=== PATIENT | male | born 1975 | race American Indian/Alaskan Native ===

== ENCOUNTER 2021-04-25 07:24 | Inpatient (IN) | payer MEDICAID ==
[2021-04-24 15:59] LABS: BASOPHILS # (AUTO) 0.1 X10'3 (0-0.2); BASOPHILS % (AUTO) 0.3 % (0-1); EOSINOPHILS % (AUTO) 0.3 % (0-6); LYMPHOCYTES # (AUTO) 1.6 X10'3 (1.1-4.8); LYMPHOCYTES % (AUTO) 11.1 % (21-51); MEAN CORPUSCULAR HEMOGLOBIN 35.8 PG (27.0-31.0); MEAN CORPUSCULAR HGB CONC 34.3 g/dL (33.0-36.5); MEAN CORPUSCULAR VOLUME 104.2 FL (78-98); MEAN PLATELET VOLUME 9.3 FL (7.4-10.4); MONOCYTES # (AUTO) 1.5 X10'3 (0-0.9); MONOCYTES % (AUTO) 10.4 % (2-12); NEUTROPHILS # (AUTO) 11.3 X10'3 (1.8-7.7); NEUTROPHILS % (AUTO) 77.9 % (42-75); PRE OP HEMATOCRIT 48.4 % (42.0-52.0); PRE OP HEMOGLOBIN 16.6 g/dL (14.0-17.9); PRE OP PLATELET COUNT 266 X10'3 (140-440); RED BLOOD COUNT 4.64 X10'6 (4.70-6.10); RED CELL DISTRIBUTION WIDTH 13.7 % (11.5-14.5)
[2021-04-24 16:09] LABS: ALBUMIN 3.4 G/DL (3.4-5.0); ALBUMIN/GLOBULIN RATIO 0.9 (1.1-1.5); ALKALINE PHOSPHATASE 76 IU/L (46-116); BLOOD UREA NITROGEN 10 MG/DL (7-18); BUN/CREATININE RATIO 10.1 (5.4-32.0); CALCIUM 9.1 MG/DL (8.5-10.1); CHLORIDE 106 MMOL/L (99-107); CREATININE 0.99 MG/DL (0.60-1.10); PRE OP ALT 38 U/L (30-65); PRE OP ANION GAP 11 (8-16); PRE OP AST 28 U/L (10-37); PRE OP BILIRUB, TOTAL 0.4 MG/DL (0.0-1.0); PRE OP GLUCOSE 102 MG/DL (70-104); PRE OP POTASSIUM 3.9 MMOL/L (3.4-5.1); PRE OP SODIUM 140 MMOL/L (135-145); TOTAL CARBON DIOXIDE 23.5 MMOL/L (24-32); TOTAL PROTEIN 7.3 G/DL (6.4-8.2); eGFR 81 ML/MIN
[2021-04-25] VITALS (9 sets, daily range): BP systolic 112–132; BP diastolic 80–93
[~2021-04-25] VITALS: Ht 165.1 cm; Wt 70.3 kg
[~2021-04-25 07:24] MED LIST: ARIP5TAB60; DIVA500T2 PO; FENT1PAT10; GABA-530 PO; LAMO100T2 PO; LEVITRA; LISI40TA13 PO; METH-603 PO; MULT-1179 PO; NORCO10T PO; SUMA100T16; TEST200V33; ZOF4T PO; ZOLM5SPR5; cefazolin/dext.iso 2gm/50ml IV ONE; famotidine 20mg tablet PO ONE; ringers solution, lacted 1,000 ML IV SCH
[2021-04-25] MEDS ORDERED: PARO-62 PO (08:22)
[2021-04-25] MEDS ORDERED: BUPIVAcaine/PF 2.5 mg/ml (0.25%) 30ml vial ONE (09:17)
[2021-04-25] MEDS ORDERED: LIDOcaine 1% 30ml preserv. free vial ONE (09:17)
[2021-04-25] MEDS ORDERED: hydrALAZINE 20mg/ml inj. IV PRN (10:00)
[2021-04-25] MEDS ORDERED: labetalol 20mg/4ml (5mg/ml) syringe IV PRN (10:00)
[2021-04-25] MEDS ORDERED: morphine 4 MG/ML inj SYRINge IV PRN (10:00)
[2021-04-25] MEDS ORDERED: ringers solution, lacted 1,000 ML IV SCH (10:00)
[2021-04-25] MEDS ORDERED: morphine 2 MG/ML inj. syringe IV PRN (10:00)
[2021-04-25] MEDS ORDERED: fentaNYL/PF 50MCG/1 ML 2ML syringe IV PRN ×2 (10:00)
[2021-04-25] MEDS ORDERED: ondansetron/PF 4mg/2ml inj IV PRN (10:00)
[2021-04-25] MEDS ORDERED: neostigmine methylsulfate 1 MG/ML 10ml vial ONE (10:01)
[2021-04-25] MEDS ORDERED: dexamethasone sod phosphate 10mg/ml inj ONE (10:01)
[2021-04-25] MEDS ORDERED: sevoflurane 250ml liquid IH ONE (10:01)
[2021-04-25] MEDS ORDERED: dexmedetomidin/NS 400mcg/100mL BOTTLE IV ONE (10:01)
[2021-04-25] MEDS ORDERED: fentaNYL /PF 50mcg/ml 5ml ampule ONE (10:05)
[2021-04-25] MEDS ORDERED: midazolam 1 mg/ML 2ml injection ONE (10:05)
[2021-04-25] MEDS ORDERED: propofol inj 20 ML IV ONE (10:11)
[2021-04-25] MEDS ORDERED: LIDOcaine 2% (20mg/ml) 5ml vial ONE (10:11)
[2021-04-25] MEDS ORDERED: rocuronium 10mg/ml inj IV ONE ×3 (10:11→11:24)
[2021-04-25] MEDS ORDERED: ondansetron/PF 4mg/2ml inj ONE (10:12)
[2021-04-25] MEDS ORDERED: glycopyrrolate 0.2mg/ml inj ONE (10:13)
[2021-04-25] MEDS ORDERED: ePHEDrine 50MG/ML INJ. ONE (10:47)
[2021-04-25] MEDS ORDERED: BUPIVAcaine/PF 2.5mg/ml (0.25%) 10ml vial ONE (12:42)
[2021-04-25] MEDS ORDERED: BUPIVACAINE liposomal/PF 13.3 MG/ML vial IM ONE (12:43)
--- NOTE | 2021-04-25 13:20 | NUR ---
Received from OR via , accompanied by Anesthesiologist DR IBRAHIM and report given by Anesthesiolgist. AWAKENS TO VOICE. VITALS STABLE. DRESSING DI. ANNALISA PAIN. NG TO SHANNAN. JACKELYN WITH SERO SANG IN BULB. ABD SOFT.
[2021-04-25] MEDS ORDERED: naloxone 0.4 mg/ml inj IV PRN (13:40)
[2021-04-25] MEDS ORDERED: CADD PCA waste documentation MC PRN (13:40)
[2021-04-25] MEDS ORDERED: HYDROmorph./NS 0.2 mg/ml CADD 100 ML IV SCH (13:40)
[2021-04-25] MEDS: HYDROmorph./NS 0.2 mg/ml CADD 100 ML IV SCH ×5 (14:14→23:00)
--- NOTE | 2021-04-25 14:30 | NUR ---
Report called to receiving nurse. Transferred via BED Belongings . Special Issues communicated to receiving nurse.AWAKE AND ORIENTED. VITALS STABLE. DRESSINGS DI. STASTES TOLERABLE PAIN LEVEL. TO SURGICAL RM 345B AT TIS TIME.
--- NOTE | 2021-04-25 15:52 | NUR ---
pt arrived on unit 1439. no acute changes from report given by PACU Jim WOOD. Dejan WILLIS, IVF/pump, chart, burgess arrived with pt. abd sx site island dressing dry/intact. NG connected to low intermittent suction. pts called to make aware of arrival to unit
[2021-04-25] MEDS: divalproex sodium 500mg tablet.DR PO SCH (19:20)
[2021-04-25] MEDS: potassium CL 20mEq in D5-1/2NS 1,000 ML IV SCH ×2 (19:20→21:40)
[2021-04-25] MEDS: heparin, porcine 5000 units/ml vial SQ SCH (20:53)
[2021-04-25] MEDS: LORazepam 2 mg/ml vial IV PRN (23:18)
[2021-04-26] VITALS: BP 113/71
[2021-04-26] MEDS: HYDROmorph./NS 0.2 mg/ml CADD 100 ML IV SCH ×12 (01:00→23:00)
[2021-04-26] MEDS: potassium CL 20mEq in D5-1/2NS 1,000 ML IV SCH ×3 (05:40→21:40)
[2021-04-26 06:42] LABS: ALBUMIN 2.6 G/DL (3.4-5.0); ANION GAP 8 (8-16); BLOOD UREA NITROGEN 8 MG/DL (7-18); CALCIUM 8.9 MG/DL (8.5-10.1); CHLORIDE 104 MMOL/L (99-107); GLUCOSE 131 MG/DL (70-104); POTASSIUM 4.2 MMOL/L (3.5-5.1); SODIUM 138 MMOL/L (135-145); TOTAL CARBON DIOXIDE 26.1 MMOL/L (24-32); eGFR > 90 ML/MIN
[2021-04-26 06:46] LABS: BASOPHILS % (AUTO) 0.1 % (0-1); EOSINOPHILS % (AUTO) 0 % (0-6); HEMATOCRIT 43.6 % (42.0-52.0); LYMPHOCYTES % (AUTO) 5.5 % (21-51); MEAN CORPUSCULAR HEMOGLOBIN 35.8 PG (27.0-31.0); MEAN CORPUSCULAR HGB CONC 34.4 g/dL (33.0-36.5); MEAN CORPUSCULAR VOLUME 103.9 FL (78-98); MEAN PLATELET VOLUME 9.5 FL (7.4-10.4); MONOCYTES # (AUTO) 2.1 X10'3 (0-0.9); MONOCYTES % (AUTO) 12.3 % (2-12); NEUTROPHILS # (AUTO) 14.3 X10'3 (1.8-7.7); NEUTROPHILS % (AUTO) 82.1 % (42-75); PLATELET COUNT 216 X10'3 (140-440); RED CELL DISTRIBUTION WIDTH 13.3 % (11.5-14.5); WHITE BLOOD COUNT 17.4 X10'3 (4.5-11.0)
[2021-04-26 08:00] VITALS: BP 126/92
[2021-04-26] MEDS: heparin, porcine 5000 units/ml vial SQ SCH ×2 (08:00→21:31)
[2021-04-26] MEDS ORDERED: fentaNYL 25MCG/hour patch.TD72 TD SCH (08:00)
[2021-04-26] MEDS: divalproex sodium 500mg tablet.DR PO SCH ×2 (08:30→15:31)
[2021-04-26] MEDS: pantoprazole 40MG/NS 100ML BAG 100 ML IV SCH (09:01)
[2021-04-26] MEDS: ondansetron/PF 4mg/2ml inj IV PRN (09:01)
[2021-04-26] MEDS: LORazepam 2 mg/ml vial IV PRN ×2 (09:06→15:50)
[2021-04-26 12:00] VITALS: BP 128/80
[2021-04-26] MEDS: PARoxetine 20mg tablet PO SCH (15:31)
[2021-04-26] MEDS: lamoTRIgine 100mg tablet PO SCH (15:31)
[2021-04-26] MEDS: aripiprazole 5mg tablet PO SCH (15:31)
[2021-04-26] MEDS: lisinopril 20mg tablet PO SCH (15:32)
--- NOTE | 2021-04-26 17:27 | NUR ---
Malnutrition consult: Pt reports wt loss with decreased appetite per malnutrition risk screen with RN. Most recent scaled wt hx in EMR is 78.2 kg taken 04/23/17 with standing scale, current standing scaled wt is 70.3 kg. This is non-significant wt loss of 10% in 4 years. Pt currently on ice sips and chips diet only s/p Joshua with Carrol-en-Y gastrojejunostomy revision POD #1. Pt likely to experience some changes in weight r/t gastric surgery. No documented edema in EMR. Pt currently lacks a minimum of two criteria for malnutrition. Will continue to follow. Addendum: 04/26/21 at [address] Amended: Links added.
[2021-04-26 20:00] VITALS: BP 144/87
[2021-04-27] VITALS: BP 139/95
[2021-04-27] MEDS: HYDROmorph./NS 0.2 mg/ml CADD 100 ML IV SCH ×11 (01:00→21:00)
[2021-04-27] MEDS: potassium CL 20mEq in D5-1/2NS 1,000 ML IV SCH ×3 (03:18→17:25)
[2021-04-27 06:25] LABS: BASOPHILS % (AUTO) 0.1 % (0-1); EOSINOPHILS % (AUTO) 0.1 % (0-6); HEMATOCRIT 42.4 % (42.0-52.0); HEMOGLOBIN 14.6 g/dl (14.0-17.9); LYMPHOCYTES # (AUTO) 1.1 X10'3 (1.1-4.8); LYMPHOCYTES % (AUTO) 6.3 % (21-51); MEAN CORPUSCULAR HEMOGLOBIN 35.6 PG (27.0-31.0); MEAN CORPUSCULAR HGB CONC 34.5 g/dL (33.0-36.5); MEAN CORPUSCULAR VOLUME 103.2 FL (78-98); MEAN PLATELET VOLUME 9.9 FL (7.4-10.4); MONOCYTES # (AUTO) 2.6 X10'3 (0-0.9); MONOCYTES % (AUTO) 14.2 % (2-12); NEUTROPHILS # (AUTO) 14.3 X10'3 (1.8-7.7); NEUTROPHILS % (AUTO) 79.3 % (42-75); PLATELET COUNT 202 X10'3 (140-440); RED BLOOD COUNT 4.11 X10'6 (4.70-6.10); RED CELL DISTRIBUTION WIDTH 13.4 % (11.5-14.5); WHITE BLOOD COUNT 18.1 X10'3 (4.5-11.0)
[2021-04-27 06:40] LABS: ALBUMIN 2.4 G/DL (3.4-5.0); ANION GAP 10 (8-16); BLOOD UREA NITROGEN 15 MG/DL (7-18); BUN/CREATININE RATIO 20.5 (5.4-32.0); CHLORIDE 100 MMOL/L (99-107); CREATININE 0.73 MG/DL (0.60-1.10); GLUCOSE 118 MG/DL (70-104); POTASSIUM 3.9 MMOL/L (3.5-5.1); SODIUM 135 MMOL/L (135-145); TOTAL CARBON DIOXIDE 25.3 MMOL/L (24-32); eGFR > 90 ML/MIN
[2021-04-27 08:00] VITALS: BP 113/76
[2021-04-27] MEDS ORDERED: SUMAtriptan 25 MG tablet PO ONE (09:45)
[2021-04-27] MEDS: lamoTRIgine 100mg tablet PO SCH (09:58)
[2021-04-27] MEDS: PARoxetine 20mg tablet PO SCH (09:58)
[2021-04-27] MEDS: divalproex sodium 500mg tablet.DR PO SCH ×2 (09:58→18:05)
[2021-04-27] MEDS: lisinopril 20mg tablet PO SCH (09:58)
[2021-04-27] MEDS: pantoprazole 40MG/NS 100ML BAG 100 ML IV SCH (09:59)
[2021-04-27] MEDS: heparin, porcine 5000 units/ml vial SQ SCH ×2 (09:59→20:21)
[2021-04-27 11:00] VITALS: BP 106/70
[2021-04-27] MEDS: aripiprazole 5mg tablet PO SCH (13:12)
--- NOTE | 2021-04-27 18:52 | NUR ---
Problems reprioritized. Patient report given, questions answered & plan of care reviewed with rubén montana rn.
--- NOTE | 2021-04-27 18:55 | NUR ---
Patient in room [facility]. I have received report from ROMÁN WOOD and had the opportunity to ask questions and assume patient care.
[2021-04-27 20:00] VITALS: BP 121/82
[2021-04-27] MEDS: gabapentin 100mg capsule PO SCH (20:21)
[2021-04-28] VITALS: BP 127/69
[2021-04-28] MEDS: HYDROmorph./NS 0.2 mg/ml CADD 100 ML IV SCH ×5 (01:00→09:00)
[2021-04-28] MEDS: potassium CL 20mEq in D5-1/2NS 1,000 ML IV SCH (03:10)
[2021-04-28 05:10] LABS: BASOPHILS % (AUTO) 0.1 % (0-1); EOSINOPHILS % (AUTO) 0.2 % (0-6); HEMATOCRIT 41.7 % (42.0-52.0); HEMOGLOBIN 14.4 g/dl (14.0-17.9); LYMPHOCYTES # (AUTO) 0.8 X10'3 (1.1-4.8); LYMPHOCYTES % (AUTO) 5.6 % (21-51); MEAN CORPUSCULAR HEMOGLOBIN 35.8 PG (27.0-31.0); MEAN CORPUSCULAR HGB CONC 34.5 g/dL (33.0-36.5); MEAN CORPUSCULAR VOLUME 103.6 FL (78-98); MEAN PLATELET VOLUME 9.8 FL (7.4-10.4); MONOCYTES # (AUTO) 1.9 X10'3 (0-0.9); MONOCYTES % (AUTO) 13.1 % (2-12); NEUTROPHILS # (AUTO) 11.5 X10'3 (1.8-7.7); PLATELET COUNT 200 X10'3 (140-440); RED BLOOD COUNT 4.03 X10'6 (4.70-6.10); RED CELL DISTRIBUTION WIDTH 13.2 % (11.5-14.5); WHITE BLOOD COUNT 14.2 X10'3 (4.5-11.0)
[2021-04-28 05:55] LABS: ALBUMIN 2.2 G/DL (3.4-5.0); ANION GAP 12 (8-16); BLOOD UREA NITROGEN 8 MG/DL (7-18); BUN/CREATININE RATIO 11.9 (5.4-32.0); CHLORIDE 100 MMOL/L (99-107); CREATININE 0.67 MG/DL (0.60-1.10); GLUCOSE 114 MG/DL (70-104); POTASSIUM 3.9 MMOL/L (3.5-5.1); SODIUM 137 MMOL/L (135-145); TOTAL CARBON DIOXIDE 25.1 MMOL/L (24-32); eGFR > 90 ML/MIN
--- NOTE | 2021-04-28 06:10 | NUR ---
Patient in room [facility]. I have received report from Deena Shaffer RN and had the opportunity to ask questions and assume patient care.
[2021-04-28 06:30] VITALS: BP 141/95
--- NOTE | 2021-04-28 06:30 | NUR ---
Problems reprioritized. Patient report given, questions answered & plan of care reviewed with ANNALISA RN.
[2021-04-28] MEDS ORDERED: SUMAtriptan 25 MG tablet PO ONE (07:45)
[2021-04-28] MEDS: heparin, porcine 5000 units/ml vial SQ SCH (08:38)
[2021-04-28] MEDS: pantoprazole 40MG/NS 100ML BAG 100 ML IV SCH (08:38)
[2021-04-28] MEDS: divalproex sodium 500mg tablet.DR PO SCH ×2 (08:38→16:23)
[2021-04-28] MEDS: lisinopril 20mg tablet PO SCH (08:38)
[2021-04-28] MEDS: lamoTRIgine 100mg tablet PO SCH (08:38)
[2021-04-28] MEDS: gabapentin 100mg capsule PO SCH ×2 (08:38→12:21)
[2021-04-28] MEDS: PARoxetine 20mg tablet PO SCH (08:38)
[2021-04-28] MEDS: ondansetron/PF 4mg/2ml inj IV PRN (08:50)
[2021-04-28] MEDS: aripiprazole 5mg tablet PO SCH (09:40)
[2021-04-28] MEDS ORDERED: oxyCODONE/APAP 5-325mg tablet PO PRN ×2 (11:55)
[2021-04-28 12:00] VITALS: BP 151/84
[2021-04-28] MEDS ORDERED: CADD PCA waste documentation MC PRN (12:05)
[2021-04-28] MEDS ORDERED: PER5325T PO (15:50)
[2021-04-28] MEDS ORDERED: sucralfate 1 gm tablet PO SCH (16:00)
--- NOTE | 2021-04-28 16:55 | NUR ---
DC inst provided to pt. IV DC'd, tip intact. All belongings sent w/pt. WC to vehicle.
[2021-04-29] MEDS ORDERED: pantoprazole 40mg Tablet.DR PO SCH (07:30)
== END 2021-04-28 16:55 | disposition home or self-care (01) | DRG 220 ==
LOC: PAS IN 07:38 → SUR 3N 14:39
PROVIDERS: ADMIT Surgery; ATTEND Surgery
PROC: 0DNW0ZZ Release Peritoneum, Open Approach (ICD-10-PCS; 2021-04-25)
PROC: 3E0T3BZ Introduction of Anesthetic Agent into Peripheral Nerves and Plexi, Percutaneous Approach (ICD-10-PCS; 2021-04-25)
PROC: 0D160ZA Bypass Stomach to Jejunum, Open Approach (ICD-10-PCS; principal; 2021-04-25 10:01)
DX: K29.70 Gastritis, unspecified, without bleeding (principal); K66.0 Peritoneal adhesions (postprocedural) (postinfection); Z20.822 Contact with and (suspected) exposure to COVID-19
CPT/HCPCS: 36415; 80048; 80053; 82948; 85025; 86885; 86900; 86901; 86920; 87081; 87635; 93005; A4215; A4618; A7000; C1758; C9113; C9290; G0378; J0690; J1100; J1170; J1644; J2060; J2250; J2405; J2704; J2710; J3010; J3480; J3490; J7120

== ENCOUNTER 2021-05-04 12:00 | Emergency (ER) | payer MEDICAID ==
[~2021-05-04] VITALS: Ht 165.1 cm; Wt 68.6 kg
[~2021-05-04 12:00] MED LIST changes: -NORCO10T PO; +PARO-62 PO; +PER5325T PO; -cefazolin/dext.iso 2gm/50ml IV ONE; -famotidine 20mg tablet PO ONE; -ringers solution, lacted 1,000 ML IV SCH
[2021-05-04 12:25] VITALS: BP 140/82
[2021-05-04] MEDS ORDERED: oxyCODONE/APAP 10/325mg tablet PO ONE (13:40)
--- NOTE | 2021-05-08 12:32 | NUR ---
PT CALLED REGARDING VISIT ON 05/04/21. PT WAS INFORMED THAT THE MED HE WAS PERSCRIBE WAS RESISTANT TO THE BACTERIA IN THE CULTURE. RX HAS BEEN CHANGED TO KEFLEX; 500MG 2 TAB PO BID x5 DAYS #20. NEW MEDICATION CALLED INTO [facility] AT PTS REQUEST
== END 2021-05-04 13:56 | disposition home or self-care (01) ==
LOC: ER 12:02
DX: L76.82 Other postprocedural complications of skin and subcutaneous tissue (principal); G43.909 Migraine, unspecified, not intractable, without status migrainosus; K21.9 Gastro-esophageal reflux disease without esophagitis; G89.29 Other chronic pain; Z79.899 Other long term (current) drug therapy; Z98.890 Other specified postprocedural states
CPT/HCPCS: 87070; 87077; 87186; 99283

== ENCOUNTER 2021-05-16 11:54 | Emergency (ER) | payer MEDICAID ==
[~2021-05-16] VITALS: Ht 162.6 cm; Wt 66.5 kg
[2021-05-16] MEDS ORDERED: acetaminophen 325mg tablet PO STA (12:05)
[2021-05-16] MEDS ORDERED: normal saline 1000ML IV soln IV ONE (12:05)
[2021-05-16 12:49] LABS: BASOPHILS # (AUTO) 0.1 X10'3 (0-0.2); BASOPHILS % (AUTO) 0.4 % (0-1); EOSINOPHILS % (AUTO) 0.4 % (0-6); HEMATOCRIT 37.4 % (42.0-52.0); HEMOGLOBIN 12.7 g/dl (14.0-17.9); LYMPHOCYTES # (AUTO) 1.2 X10'3 (1.1-4.8); LYMPHOCYTES % (AUTO) 9.2 % (21-51); MEAN CORPUSCULAR HEMOGLOBIN 34.3 PG (27.0-31.0); MEAN CORPUSCULAR HGB CONC 33.9 g/dL (33.0-36.5); MEAN CORPUSCULAR VOLUME 101.3 FL (78-98); MEAN PLATELET VOLUME 8.1 FL (7.4-10.4); MONOCYTES # (AUTO) 1.1 X10'3 (0-0.9); MONOCYTES % (AUTO) 8.5 % (2-12); NEUTROPHILS % (AUTO) 81.5 % (42-75); PLATELET COUNT 505 X10'3 (140-440); RED BLOOD COUNT 3.69 X10'6 (4.70-6.10); RED CELL DISTRIBUTION WIDTH 13.7 % (11.5-14.5); WHITE BLOOD COUNT 13.4 X10'3 (4.5-11.0)
[2021-05-16 13:09] LABS: ALANINE AMINOTRANSFERASE 30 U/L (12-78); ALBUMIN 2.7 G/DL (3.4-5.0); ALBUMIN/GLOBULIN RATIO 0.6 (1.1-1.5); ALKALINE PHOSPHATASE 98 IU/L (46-116); ANION GAP 8 (8-16); ASPARTATE AMINO TRANSFERASE 21 U/L (10-37); BILIRUBIN,TOTAL 0.2 MG/DL (0.1-1.0); BLOOD UREA NITROGEN 15 MG/DL (7-18); BUN/CREATININE RATIO 18.5 (5.4-32.0); CALCIUM 8.9 MG/DL (8.5-10.1); CHLORIDE 105 MMOL/L (99-107); CREATININE 0.81 MG/DL (0.60-1.10); GLUCOSE 134 MG/DL (70-104); POTASSIUM 4.2 MMOL/L (3.5-5.1); SODIUM 138 MMOL/L (135-145); TOTAL CARBON DIOXIDE 24.6 MMOL/L (24-32); TOTAL PROTEIN 7.4 G/DL (6.4-8.2); eGFR > 90 ML/MIN
[2021-05-16] MEDS ORDERED: levoFLOXACIN-Levaquin 750MG/D5 150 ML IV STA (16:50)
[2021-05-16] MEDS ORDERED: normal saline 1000ML IV soln IVB ONE (16:55)
[2021-05-16] MEDS ORDERED: LORazepam 2 mg/ml vial IV ONE (16:55)
[2021-05-16 17:17] LABS: CLARITY,URINE CLEAR (Clear); COLOR,URINE YELLOW (Yellow); GLUCOSE, URINE NEGATIVE (Neg); KETONES,URINE TRACE mg/dl (Neg); LEUKOCYTE ESTERASE ,URINE NEGATIVE (Neg); NITRITES, URINE NEGATIVE (Neg); OCCULT BLOOD,URINE NEGATIVE (Neg); PH,URINE 5.5 (4.8-8.0); PROTEIN,URINE NEGATIVE (Neg); UROBILINOGEN,URINE 0.2 E.U/dL (0.2-1.0)
[2021-05-16 17:33] LABS: UA COLLECTION TYPE CLN CATCH MIDSTREAM
[2021-05-16] MEDS ORDERED: LEVO500T90 PO (17:42)
[2021-05-16 19:55] VITALS: BP 111/81
== END 2021-05-16 21:07 | disposition home or self-care (01) ==
LOC: ER 11:56
DX: R10.84 Generalized abdominal pain (principal); Z20.822 Contact with and (suspected) exposure to COVID-19; R53.83 Other fatigue; R11.2 Nausea with vomiting, unspecified; R50.9 Fever, unspecified; G43.909 Migraine, unspecified, not intractable, without status migrainosus; K21.9 Gastro-esophageal reflux disease without esophagitis; G89.29 Other chronic pain; F31.9 Bipolar disorder, unspecified; Z87.11 Personal history of peptic ulcer disease; Z86.2 Personal history of diseases of the blood and blood-forming organs and certain disorders involving the immune mechanism; Z98.890 Other specified postprocedural states; Z79.2 Long term (current) use of antibiotics; Z79.899 Other long term (current) drug therapy
CPT/HCPCS: 36415; 71045; 80053; 81003; 83605; 84145; 85025; 87040; 87635; 93005; 96365; 96375; 99285; C9803; J1956; J2060; J7030; 99284

== ENCOUNTER 2021-05-29 11:25 | Emergency (ER) | payer MEDICAID ==
[~2021-05-29] VITALS: Ht 165.1 cm; Wt 64.1 kg
[~2021-05-29 11:25] MED LIST changes: +LEVO500T90 PO
[2021-05-29 12:16] LABS: BASOPHILS % (AUTO) 0.4 % (0-1); EOSINOPHILS % (AUTO) 0.3 % (0-6); HEMATOCRIT 38.7 % (42.0-52.0); HEMOGLOBIN 13.2 g/dl (14.0-17.9); LYMPHOCYTES # (AUTO) 1.3 X10'3 (1.1-4.8); LYMPHOCYTES % (AUTO) 12.2 % (21-51); MEAN CORPUSCULAR HEMOGLOBIN 34.3 PG (27.0-31.0); MEAN CORPUSCULAR HGB CONC 34.2 g/dL (33.0-36.5); MEAN CORPUSCULAR VOLUME 100.4 FL (78-98); MEAN PLATELET VOLUME 8.9 FL (7.4-10.4); MONOCYTES # (AUTO) 1.1 X10'3 (0-0.9); MONOCYTES % (AUTO) 10.3 % (2-12); NEUTROPHILS # (AUTO) 8.5 X10'3 (1.8-7.7); NEUTROPHILS % (AUTO) 76.8 % (42-75); PLATELET COUNT 330 X10'3 (140-440); RED BLOOD COUNT 3.85 X10'6 (4.70-6.10); RED CELL DISTRIBUTION WIDTH 14.5 % (11.5-14.5); WHITE BLOOD COUNT 11.1 X10'3 (4.5-11.0)
[2021-05-29 12:43] LABS: ALANINE AMINOTRANSFERASE 26 U/L (12-78); ALBUMIN 3.5 G/DL (3.4-5.0); ALBUMIN/GLOBULIN RATIO 0.9 (1.1-1.5); ALKALINE PHOSPHATASE 76 IU/L (46-116); ANION GAP 13 (8-16); ASPARTATE AMINO TRANSFERASE 16 U/L (10-37); BILIRUBIN,TOTAL 0.4 MG/DL (0.1-1.0); BLOOD UREA NITROGEN 10 MG/DL (7-18); BUN/CREATININE RATIO 11.2 (5.4-32.0); CALCIUM 9.2 MG/DL (8.5-10.1); CHLORIDE 103 MMOL/L (99-107); CREATININE 0.89 MG/DL (0.60-1.10); GLUCOSE 137 MG/DL (70-104); LIPASE 97 U/L (73-393); POTASSIUM 3.7 MMOL/L (3.5-5.1); SODIUM 140 MMOL/L (135-145); TOTAL CARBON DIOXIDE 24.2 MMOL/L (24-32); TOTAL PROTEIN 7.2 G/DL (6.4-8.2); eGFR > 90 ML/MIN
[2021-05-29 14:00] VITALS: BP 136/98
[2021-05-29 15:04] LABS: CLARITY,URINE CLEAR (Clear); COLOR,URINE YELLOW (Yellow); GLUCOSE, URINE NEGATIVE (Neg); KETONES,URINE NEGATIVE (Neg); LEUKOCYTE ESTERASE ,URINE NEGATIVE (Neg); NITRITES, URINE NEGATIVE (Neg); OCCULT BLOOD,URINE NEGATIVE (Neg); PH,URINE 6.5 (4.8-8.0); PROTEIN,URINE NEGATIVE (Neg); UROBILINOGEN,URINE 0.2 E.U/dL (0.2-1.0)
[2021-05-29 15:09] LABS: UA COLLECTION TYPE CLN CATCH MIDSTREAM
--- NOTE | 2021-05-29 16:10 | NUR ---
Pt and given and understands d/c instructions. IV d/c'd, catheter was intact. Ambulatory with a steady gait.
== END 2021-05-29 16:10 | disposition home or self-care (01) ==
LOC: ER 11:26
DX: R53.83 Other fatigue (principal); R10.84 Generalized abdominal pain; G43.909 Migraine, unspecified, not intractable, without status migrainosus; K21.9 Gastro-esophageal reflux disease without esophagitis; G89.29 Other chronic pain; F31.9 Bipolar disorder, unspecified; Z86.2 Personal history of diseases of the blood and blood-forming organs and certain disorders involving the immune mechanism; Z87.11 Personal history of peptic ulcer disease; Z98.890 Other specified postprocedural states; Z79.2 Long term (current) use of antibiotics; Z79.899 Other long term (current) drug therapy
CPT/HCPCS: 36415; 80053; 81003; 83690; 85025; 99284